=== PATIENT | male | born 1975 | race Caucasian/White ===

== ENCOUNTER → 2019-09-26 16:56 | Outpatient (CLI) | payer OTHER, SELFPAY ==
--- NOTE | 2019-09-26 17:00 | RAD_ITS ---
STUDY: X-RAY - RIGHT FOOT CLINICAL: Male, 44 years old. Pain in the second and third toes since this summer. TECHNIQUE: 3 view(s) of the foot. COMPARISON: None. FINDINGS: Normal talus, calcaneus, and tarsal bones. Normal visualized subtalar, talonavicular, calcaneocuboid, tarsal and tarsometatarsal articulations. Normal metatarsi. Normal metatarsophalangeal joint of the great toe. Normal tibial and fibular sesamoid bones. Normal interphalangeal joint of the great toe. Normal phalanges of the great toe. Normal second through fifth metatarsophalangeal joints. Normal interphalangeal joints and phalanges of the lesser toes. The soft tissue structures are unremarkable. RAD/Foot min 3 Views IMPRESSION: Normal x-ray examination of the foot. Electronically Signed: Guzman Vauhgan DO at 23:49 EST Tel [phone], Service support ,
== END ==
PROVIDERS: Family Provider Family Medicine; PCP Family Medicine; Referring Provider Family Medicine; Visit Provider Family Medicine
DX: M77.41 Metatarsalgia, right foot (principal)
CPT/HCPCS: 73630

== ENCOUNTER 2019-10-18 15:06 | Emergency (ER) | payer OTHER, SELFPAY ==
[2019-10-18 15:07] VITALS: BP 137/90; PULSE 96; RESP 20; TEMP 36.4; O2SAT 98; BMI 32.5
[2019-10-18 15:30] VITALS: RESP 16
--- NOTE | 2019-10-18 15:37 | RAD_ITS ---
STUDY: X-RAY - LEFT SHOULDER REASON FOR EXAM: Male, 44 years old. FALL. LEFT ARM PAIN. HX OF SURGERY TO LEFT SHOULDER AND SCAPULA TECHNIQUE: 2 view(s) of the shoulder. COMPARISON: None. FINDINGS: Acute, nondisplaced fracture of the surgical neck of the humerus with moderate apex anterior angulation. Acute nondisplaced fracture of the greater tuberosity. Prior internal fixation of the humeral shaft. Prior internal fixation of the lateral ribs. Old healed posterior rib fractures. Normal visualized pulmonary apex. RAD/Shoulder min 2 Views IMPRESSION: Acute fractures of the left radial tuberosity and surgical neck of the humerus. Electronically Signed: Svetlana Lamas MD at 17:15 EST Tel , Service support ,
--- NOTE | 2019-10-18 15:37 | RAD_ITS ---
STUDY: X-RAY - LEFT HUMERUS REASON FOR EXAM: Male, 44 years old. FALL. LEFT ARM PAIN. HX OF SURGERY TO LEFT SHOULDER AND SCAPULA TECHNIQUE: 4 view(s) of the humerus. COMPARISON: None. FINDINGS: Acute, nondisplaced fracture of the surgical neck of the humerus. Acute nondisplaced fracture of the greater tuberosity. Prior internal fixation of the humeral shaft. Medial plate and screws in place. No evidence of loosening. No periprosthetic fracture. Prior internal fixation of the lateral ribs. RAD/Humerus min 2 Views IMPRESSION: Acute fractures of the left greater tuberosity and surgical neck of the humerus. Prior internal fixation of the humeral shaft and left ribs. Electronically Signed: Svetlana Lamas MD at 17:16 EST Tel , Service support ,
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
[2019-10-18] MEDS: Ondansetron 4 MG/2 ML Vial IV (15:58)
[2019-10-18] MEDS: HYDROmorphone 1 MG/ML Syringe 0.5 MG IV (15:59)
--- NOTE | 2019-10-18 16:30 | RAD_ITS ---
STUDY: X-RAY - LEFT RADIUS AND ULNA REASON FOR EXAM: Male, 44 years old. FALL. LEFT ARM PAIN. HX OF SURGERY TO LEFT SHOULDER AND SCAPULA TECHNIQUE: 2 view(s) of the forearm. COMPARISON: None. FINDINGS: There is no demonstrated soft tissue swelling. Normal visualized radius. Normal visualized ulna. RAD/Forearm 2 Views IMPRESSION: Normal x-ray examination of the radius and ulna. Electronically Signed: Svetlana Lamas MD at 17:24 EST Tel , Service support ,
[2019-10-18] MEDS: HYDROmorphone 0.5 MG/0.5 ML SYRINGE IV (17:15)
[2019-10-18 17:55] VITALS: BP 109/72; PULSE 82; RESP 16; O2SAT 100
== END 2019-10-18 17:56 | disposition home or self-care (01) ==
PROVIDERS: Emergency Provider Emergency Medicine; Family Provider Family Medicine; PCP Family Medicine
DX: S42.215A Unspecified nondisplaced fracture of surgical neck of left humerus, initial encounter for closed fracture (principal); S52.182A Other fracture of upper end of left radius, initial encounter for closed fracture; W18.30XA Fall on same level, unspecified, initial encounter; Y93.89 Activity, other specified; Y92.008 Other place in unspecified non-institutional (private) residence as the place of occurrence of the external cause; Y99.8 Other external cause status
CPT/HCPCS: 73030; 73060; 73090; 96374; 96375; 96376; 99284; A4216; J2405

== ENCOUNTER → 2021-08-19 14:07 | Outpatient (CLI) | payer OTHER, SELFPAY ==
[2021-08-19 18:12] LABS: Hematocrit 46.3 % (40-54); Hemoglobin 15.5 g/dL (13.0-16.5); Mean Corp Hgb Conc 33.5 g/dL (32-36); Mean Corpuscular Hgb 31.9 pg (27.0-32.0); Mean Corpuscular Volume 95.3 fL (80-94); Mean Platelet Vol. 10.2 fl (6.2-12.0); Platelet Count 284 K/mm3 (150-450); RBC Distribution Width CV 12.2 % (11.6-14.6); RBC Distribution Width SD 43.1 fl (35.1-43.9); Red Blood Count 4.86 M/mm3 (4.6-6.2); White Blood Count 9.1 K/mm3 (4.4-11.0)
[2021-08-19 18:32] LABS: Vitamin B12 282 pg/mL (211-911); Vitamin D,25 Hydroxy 20.5 ng/mL
[2021-08-19 18:42] LABS: Anion Gap 7 (5-15); BUN 18 mg/dL (7-18); BUN/Creat Ratio 17.5 RATIO (10-20); Calcium,Total 8.9 mg/dL (8.5-10.1); Chloride 103 mmol/L (98-107); Creatinine, Serum 1.03 mg/dL (0.70-1.30); EST Glomerular Filtration Rate 83 mL/min (>60); Est Glom Filt Rate - Afr Amer 100 mL/min (>60); Glucose 103 mg/dL (74-106); Potassium 3.9 mmol/L (3.5-5.1); Sodium Level 137 mmol/L (136-145); Thyroid Stim Hormone (TSH) 0.74 uIU/mL (0.358-3.74)
== END ==
PROVIDERS: PCP Family Medicine; Referring Provider Family Medicine; Visit Provider Family Medicine
DX: R53.83 Other fatigue (principal)
CPT/HCPCS: 36415; 80048; 82306; 82607; 84403; 84443; 85027

== ENCOUNTER 2021-12-30 10:42 | Outpatient (CLI) | payer BC, SELFPAY ==
--- NOTE | 2021-12-30 10:47 | RAD_ITS ---
INDICATION: ELBOW PAIN EXAMINATION/TECHNIQUE: X-RAY - RIGHT XR Elbow Min 3 Views COMPARISON: None. FINDINGS: No acute fracture or dislocation. Joint spaces are intact. Soft tissues are unremarkable. No significant joint effusion. No significant degenerative changes. RAD/Elbow min 3 Views IMPRESSION: Unremarkable right elbow radiograph. Electronically Signed: Judd Domínguez, at 11:45 EDT ,
== END 2021-12-30 23:59 | disposition home or self-care (01) ==
LOC: MTRAD 10:45
PROVIDERS: PCP Family Medicine; Referring Provider Family Medicine; Visit Provider Family Medicine
DX: M25.521 Pain in right elbow (principal)
CPT/HCPCS: 73080

== ENCOUNTER → 2022-03-08 | Outpatient (CLI) | payer BC, SELFPAY | END | disposition home or self-care (01) | LOC: SL 09:36 | PROVIDERS: PCP Family Medicine; Visit Provider Nurse Practitioner Acute Care | DX: Z00.00 Encounter for general adult medical examination without abnormal findings (principal) ==

== ENCOUNTER → 2022-12-29 | Outpatient (CLI) | payer MEDICAID, SELFPAY ==
[2022-12-29 12:51] LABS: Vitamin B12 1294 pg/mL (211-911); Vitamin D,25 Hydroxy 49.7 ng/mL
[2022-12-29 12:58] LABS: Cholesterol 214 mg/dL (200); High Density Lipoprotein 42 mg/dL; Triglycerides 203 mg/dL; Very Low Density Lipoprotein 41 mg/dL (5-40)
== END | disposition home or self-care (01) ==
LOC: MFPLAB 10:44
PROVIDERS: PCP Family Medicine; Referring Provider Family Medicine; Visit Provider Family Medicine
DX: Z00.00 Encounter for general adult medical examination without abnormal findings (principal); E53.8 Deficiency of other specified B group vitamins; R79.89 Other specified abnormal findings of blood chemistry
CPT/HCPCS: 36415; 80061; 82306; 82607

== ENCOUNTER → 2023-07-25 | Outpatient (CLI) | payer OTHER, SELFPAY ==
--- NOTE | 2023-07-25 16:11 | RAD_ITS ---
STUDY: X-RAY - LEFT HAND, ATTENTION FOURTH FINGER REASON FOR EXAM: Male, 48 years old. injury TECHNIQUE: 3 view(s) of the finger were obtained. COMPARISON: None. FINDINGS: Normal metacarpal head. Normal metacarpophalangeal joint. Normal proximal phalanx. Normal middle phalanx. Normal distal phalanx. Normal proximal interphalangeal joint. Normal distal interphalangeal joint. There is no demonstrated fracture. No focal soft tissue swelling or mass. RAD/Finger(s) Min 2 Views IMPRESSION: Unremarkable exam with no distinct fracture or subluxation. Electronically Signed: Yumiko Motta MD at 17:13 EDT ,
== END | disposition home or self-care (01) ==
LOC: MTRAD 16:11
PROVIDERS: PCP Family Medicine; Referring Provider Physician Assistant; Visit Provider Physician Assistant
DX: S69.92XA Unspecified injury of left wrist, hand and finger(s), initial encounter (principal); X58.XXXA Exposure to other specified factors, initial encounter
CPT/HCPCS: 73140

== ENCOUNTER → 2023-12-28 | Outpatient (CLI) | payer SELFPAY ==
[2023-12-28 13:01] LABS: Vitamin D,25 Hydroxy 30.3 ng/mL
[2023-12-28 13:53] LABS: AST(SGOT) 17 U/L (15-37); Alanine Aminotransfer ALT/SGPT 29 U/L (16-61); Albumin, Serum 3.5 g/dL (3.2-5.0); Alkaline Phosphatase 70 U/L (45-117); Anion Gap 6 (5-15); BUN 14 mg/dL (7-18); BUN/Creat Ratio 14.3 RATIO (10-20); Calcium,Total 8.8 mg/dL (8.5-10.1); Chloride 108 mmol/L (98-107); Cholesterol 180 mg/dL (200); Creatinine, Serum 0.98 mg/dL (0.70-1.30); EST Glomerular Filtration Rate 87 mL/min (>60); Est Glom Filt Rate - Afr Amer 105 mL/min (>60); Globulin 3.6 g/dL (2.2-4.2); Glucose 124 mg/dL (74-106); High Density Lipoprotein 38 mg/dL; Potassium 4.3 mmol/L (3.5-5.1); Protein, Total 7.1 g/dL (6.4-8.2); Sodium Level 138 mmol/L (136-145); Triglycerides 170 mg/dL; Very Low Density Lipoprotein 34 mg/dL (5-40)
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
== END | disposition home or self-care (01) ==
LOC: MFPLAB 11:01
PROVIDERS: PCP Family Medicine; Visit Provider Family Medicine
DX: R73.03 Prediabetes (principal); R79.89 Other specified abnormal findings of blood chemistry
CPT/HCPCS: 36415; 80053; 80061; 82306

== ENCOUNTER → 2025-02-26 | Outpatient (CLI) | payer OTHER, SELFPAY ==
[2025-02-26 10:21] LABS: Hematocrit 46.3 % (40-54); Hemoglobin 15.9 g/dL (13.0-16.5); Mean Corp Hgb Conc 34.3 g/dL (32-36); Mean Corpuscular Hgb 32.3 pg (27.0-32.0); Mean Corpuscular Volume 93.9 fL (80-94); Mean Platelet Vol. 9.7 fl (6.2-12.0); Platelet Count 300 K/mm3 (150-450); RBC Distribution Width CV 12.1 % (11.6-14.6); RBC Distribution Width SD 42.1 fl (35.1-43.9); Red Blood Count 4.93 M/mm3 (4.6-6.2); White Blood Count 8.9 K/mm3 (4.4-11.0)
[2025-02-26 11:19] LABS: ALB/GLOB Ratio 1.2 RATIO (0.9-2.4); AST(SGOT) 25 U/L (<=37); Alanine Aminotransfer ALT/SGPT 40 U/L (<=46); Albumin, Serum 4.3 g/dL (3.5-5.0); Alkaline Phosphatase 88 U/L (40-129); Anion Gap 13 (5-15); BUN 14 mg/dL (4-19); Calcium,Total 9.9 mg/dL (7.6-11.0); Carbon Dioxide 22.5 mmol/L (21.0-32.0); Chloride 102 mmol/L (98-108); Cholesterol 224 mg/dL (<=200); Creatinine, Serum 0.97 mg/dL (0.70-1.20); EST Glomerular Filtration Rate 95 (>60); Globulin 3.5 g/dL (2.2-4.2); Glucose 116 mg/dL (70-99); High Density Lipoprotein 41 mg/dL; Low Density Lipoprotein Calc. 140 mg/dL; Potassium 4.5 mmol/L (3.3-5.1); Protein, Total 7.9 g/dL (5.9-8.4); Sodium Level 137 mmol/L (133-145); Triglycerides 218 mg/dL; Very Low Density Lipoprotein 44 mg/dL (5-40); cholesterol:hdl ratio screen 5.48
== END | disposition home or self-care (01) ==
LOC: MFPLAB 09:04
PROVIDERS: PCP Family Medicine; Referring Provider Family Medicine; Visit Provider Family Medicine
DX: E34.9 Endocrine disorder, unspecified (principal)
CPT/HCPCS: 36415; 80053; 80061; 84403; 85027